=== PATIENT | female | born 1970 | race Caucasian/White ===

== ENCOUNTER 2023-06-16 19:28 | Emergency (ER) | payer MEDICARE, OTHER ==
[~2023-06-16] VITALS: Ht 162.5 cm; Wt 96.4 kg
[2023-06-16 19:29] VITALS: BP 159/94
[2023-06-16] MEDS ORDERED: PREG150C PO (20:00)
--- NOTE | 2023-06-16 20:01 | ED General ---
General Chief Complaint: General Problems/Pain Stated Complaint: MEDICATION W/D,N/D,COLD CHILLS Nursing Triage Note: Patient states that she just moved to this area from [place]. Patient takes 150mg of Pregabalin BID. There was a mix up with getting her medication refilled. Patient states that she is having withdrawals from the medication. She reports nausea, diarrhea, dizziness and hot flashes. Patient has had these withdrawal symptoms before in the past. Patient states she ran out of the medication on Tuesday. Source of Information: Patient Exam Limitations: No Limitations History of Present Illness Date Seen by Provider: Jun 16, 2023 Time Seen by Provider: 19:44 Initial Comments This 53-year-old woman presents to the emergency room complaining of withdrawal symptoms after running out of Lyrica. She typically takes Lyrica 150 mg twice daily. Her last Lyrica dose was on June 14. She started developing withdrawal symptoms the next day including dizziness, nausea, hot flashes and chilled sensation. She reports having the exact same symptoms on another recent occasion in which she accidentally left the remainder of her medication in [place]. She is moving to the area from [place] and has previously filled her Lyrica at a [facility] pharmacy in [facility]. I did check with that pharmacy. She has a pending refill request but that has not been yet granted and filled. Patient does not intend to go back to [place] soon and request that we help her get a prescription now. Allergies and Home Medications Allergies Coded Allergies: cephalexin (Verified Allergy, Unknown, 06/16/23) prednisone (Verified Allergy, Unknown, 06/16/23) Patient Home Medication List Home Medication List Reviewed: Yes Pregabalin (Lyrica) 150 Mg Capsule, 150 MG PO BID Prescribed by: SHERRI GUNDERSON on 06/16/232000 Review of Systems Review of Systems Constitutional: see HPI, chills, dizziness EENTM: no symptoms reported Respiratory: no symptoms reported Cardiovascular: no symptoms reported Gastrointestinal: see HPI Genitourinary: no symptoms reported : No Musculoskeletal: no symptoms reported Skin: no symptoms reported Psychiatric/Neurological: No Symptoms Reported Hematologic/Lymphatic: No Symptoms Reported Immunological/Allergic: no symptoms reported Past [id number]-Idwcgd-Knhrje Hx Patient Social History Tobacco Use?: No Substance use?: No Alcohol Use?: No Pt feels they are or have been: No Past Medical History Surgeries: Yes (Sinus surgery) Gallbladder, Hysterectomy, Tubal Ligation Respiratory: No Cardiac: No Neurological: Yes Headaches /Migraines Reproductive Disorders: No Genitourinary: No Gastrointestinal: No Musculoskeletal: Yes Fibromyalgia, Chronic Back Pain Endocrine: No HEENT: No Cancer: No Psychosocial: No Integumentary: No Physical Exam Vital Signs Vital Signs - First Documented 06/16/23 19:29 Temp 36.6 Pulse 90 Resp 18 B/P (MAP) 159/94 (115) Pulse Ox 100 O2 Delivery Room Air Capillary Refill : Less Than 3 Seconds Height, Weight, BMI Height: '" Weight: lbs. oz. 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 Norm as Tested Skin: Normal Color, Warm/Dry Progress/Results/Core Measures Suspected Sepsis SIRS Temperature: Pulse: 90 Respiratory Rate: 18 Blood Pressure 159 /94 Mean: 115 Results/Orders My Orders Orders - SHERRI STODDARD MD Gabapentin Capsule (Gabapentin Capsule) (06/16/23 20:15) Medications Given in ED Current Medications Medications Dose Ordered Sig/Elvira Route Start Time Stop Time Status Last Admin Dose Admin Gabapentin 600 mg ONCE ONCE PO 06/16/23 20:15 06/16/23 20:16 DC 06/16/23 20:15 600 MG Vital Signs/I&O 06/16/23 19:29 Temp 36.6 Pulse 90 Resp 18 B/P (MAP) 159/94 (115) Pulse Ox 100 O2 Delivery Room Air Capillary Refill : Less Than 3 Seconds Blood Pressure Mean: 115 Progress Note : Progress Note Exam was unremarkable. After confirming patient's history with the pharmacy, I prescribed a short-term replacement for her Lyrica. Lyrica is not available in the supply stock in this ER. Gabapentin was given as a substitute treatment overnight. See discharge instructions for further discussion. Departure Impression Primary Impression: Medication withdrawal Qualified Codes: F19.939 - Other psychoactive substance use, unspecified with withdrawal, unspecified Disposition: 01 HOME, SELF-CARE Condition: Stable Departure-Patient Inst. Decision time for Depature: 19:59 Patient Instructions: Prescription Drug Withdrawal (DC) Add. Discharge Instructions: You are being given a 10-day supply of Lyrica to help bridge you over until you can either work with your prior prescriber or see a new prescriber to reestablish maintenance prescribing for this medication. Return to care if you have worsening symptoms despite returning to regular use of Lyrica. All discharge instructions reviewed with patient and/or family. Voiced understanding. Scripts Pregabalin (Lyrica) 150 Mg Capsule 150 MG PO BID, #20 CAP Prov: SHERRI STODDARD MD 06/16/23 SHERRI STODDARD MD Jun 16, 2023 20:01
[2023-06-16] MEDS ORDERED: GABAPENTIN 100 MG CAPSULE PO ONE (20:15)
[2023-06-16] MEDS ORDERED: PREGABALIN 25 MG CAPSULE PO ONE (20:15)
== END 2023-06-16 20:16 | disposition home or self-care (01) ==
LOC: ER FS 19:31
DX: F19.239 Other psychoactive substance dependence with withdrawal, unspecified (principal)
CPT/HCPCS: 99283